=== PATIENT | male | born 1980 | race Caucasian/White ===

== ENCOUNTER → 2018-07-25 | Day surgery (SDC) | payer OTHER ==
[~2018-07-25] VITALS: Ht 185.4 cm; Wt 99.8 kg
[~2018-07-25] MED LIST: BACTRIM DS TAB1 EACH PO; FLOMAX0.4 M1 PO; IBUPROFEN800 M1 PO; PERCOCET 5-3251 EACH PO; ZOFRAN ODT4 M1 SL
--- NOTE | 2018-07-25 12:52 | Operative Report ---
Operative/Inv Procedure Report Surgery Date: 07/25/18 Name of Procedure: left ESWL to mid ureteral stone Pre-Operative Diagnosis: left ureteral stone Post-Operative Diagnosis: same Estimated Blood Loss: scant Surgeon/Game Warden: Maru Black MD Anesthesia: local monitored anesthesi Complications: none Condition: stable Operative Indication: left ureteral stone Operative/Procedure Note Note: 38yo male with a first episode of renal colic from a left ureteral stone 4mm in size with associated hydroureteronephrosis. He experienced a buckling due to the pain. He had no N/V/F/C associated with it. He has been trying to drink more water but has not passed the stone yet. He has not had much pain recently but is concerned that he will. He has no irritative urinary sx and no voiding complaints. No hx of urinary incontinence, hematuria or UTIs/prostatitis. He has a social smoking hx. Patient was given the risks, benefits and alternatives in the office and the holding area. Consent was signed after all questions were answered. Patient was brought to the operating room and placed on the table in the supine position. Time out was performed. IV kefzol was given 2gm. ESWL was started after IV sedation was given adequately and the 4mm stone was located in the midureter. The shockwaves were started at a power of 10 for 100 shocks, then power of 11 for 100 shocks, then power of 12 for 100 shocks, then power of 13 for 100 shocks and finally power of 20 for 2600 shocks. Patient tolerated the procedure well. THe stone was visibly changed at the end of the procedure. Patient was transferred to [facility] in stable condition. Findings: visibly changed stone in the ureter after ESWL
== END ==
LOC: STS 02:16
DX: N13.2 Hydronephrosis with renal and ureteral calculous obstruction (principal); F17.200 Nicotine dependence, unspecified, uncomplicated; K21.9 Gastro-esophageal reflux disease without esophagitis; G47.33 Obstructive sleep apnea (adult) (pediatric)
CPT/HCPCS: J0690; J2250